=== PATIENT | male | born 2000 | race Caucasian/White ===

== ENCOUNTER 2024-07-29 12:41 | Emergency (ER) | payer OTHER | END 2024-07-29 13:58 | disposition home or self-care (01) | LOC: VM.ED 12:41 | DX: S53.402A Unspecified sprain of left elbow, initial encounter (principal); X50.0XXA Overexertion from strenuous movement or load, initial encounter | CPT/HCPCS: 73080-LT; 99283 ==

== ENCOUNTER 2024-10-17 13:37 | Emergency (ER) | payer SELFPAY | END 2024-10-17 14:28 | disposition home or self-care (01) | LOC: VM.ED 13:37 | DX: M43.6 Torticollis (principal); F17.210 Nicotine dependence, cigarettes, uncomplicated | CPT/HCPCS: 99283 ==